=== PATIENT | male | born 1960 | race Caucasian/White ===

== ENCOUNTER 2020-07-27 14:21 | Inpatient (IN) | payer MEDICAID ==
[~2020-07-27] VITALS: Ht 185.4 cm; Wt 110.0 kg
[2020-07-27 15:55] LABS: Basophils # (auto) 0.1 10 ^3/uL (0-0.2); Basophils % (auto) 1.1 % (0.0-2.0); Eosinophils # (auto) 0.2 10 ^3/uL (0-0.8); Eosinophils % (auto) 2.3 % (0.0-7.0); Hematocrit 43.3 % (41.0-53.0); Hemoglobin 14.3 g/dL (13.5-17.5); Lymphocytes % (auto) 24.2 % (10.0-50.0); Mean Corpuscular Hemoglobin 29.7 pg (28.0-32.0); Monocytes # (auto) 0.5 10 ^3/uL (0-1.3); Monocytes % (auto) 5.9 % (0.0-12.0); Neutrophils # (auto) 5.4 10 ^3/uL (1.6-8.6); Neutrophils % (auto) 66.5 % (37.0-80.0); Platelet Count (auto) 271 10^3/uL (140-450); Red Blood Cells 4.81 10^6/uL (4.5-5.90); Red Cell Distribution Width 14.3 % (11.8-14.3); White Blood Cell 8.1 10^3/uL (4.4-10.8)
[2020-07-27 16:04] LABS: Albumin 3.5 g/dL (3.4-5.0); BUN/Creatinine Ratio 10.5; Calcium 8.1 mg/dL (8.5-10.1); Potassium 3.8 mmol/L (3.5-5.1)
[2020-07-27 16:09] LABS: Bilirubin, Total 0.4 mg/dL (0.2-1.0)
[2020-07-27] MEDS ORDERED: ENOXAPARIN SOD 120 MG/0.8 ML SYRINGE SC ONE (18:15)
[2020-07-27] MEDS ORDERED: ASPirin 81 mg TAB PO ONE (18:15)
[2020-07-27] MEDS ORDERED: FENO134C PO (19:38)
[2020-07-27] MEDS ORDERED: ASPI-325 PO (19:38)
[2020-07-27] MEDS ORDERED: ATOR20TA50 PO (19:38)
[2020-07-27] MEDS ORDERED: METO-169 PO (19:38)
[2020-07-27] MEDS ORDERED: MAGN400T40 PO (20:17)
[2020-07-27] MEDS ORDERED: CHOL20007 PO (20:17)
[2020-07-27] MEDS ORDERED: B-CO-15 OR (20:17)
[2020-07-27] MEDS ORDERED: ZINC220C8 PO (20:17)
[2020-07-27] MEDS ORDERED: OMEGCAP28 OR (20:17)
[2020-07-27] MEDS ORDERED: POTA10TA51 PO (20:17)
[2020-07-27 20:27] LABS: Urine Bacteria NONE SEEN /hpf (None Seen); Urine Blood Negative /uL (Negative); Urine Mucus FEW (None Seen); Urine Specific Gravity 1.025 (1.001-1.035); Urine WBC 1 /hpf (0 - 3)
[2020-07-27] MEDS ORDERED: MORPHINE SULF INJ 2 MG/ML SYRINGE 1ML IV PRN ×2 (20:30→20:45)
[2020-07-27] MEDS ORDERED: NITROGLYCERIN 0.4 MG SL TAB SL PRN (20:30)
[2020-07-27 21:15] LABS: Partial Thromboplastin Time 26.2 sec (23.0-31.2)
[2020-07-27 22:29] LABS: Cholesterol 162 mg/dL (< 200)
[2020-07-27 22:32] LABS: HDL Cholesterol 34 mg/dL (40-59); LDL Cholesterol 113 mg/dL (< 100); Triglycerides 124 mg/dL (< 150)
[2020-07-27] MEDS: ATORVASTATIN 20 MG TAB PO SCH (22:56)
--- NOTE | 2020-07-28 00:02 | NUR ---
Telemetry admit from ER Patient admitted to Telemetry unit and oriented to primary RN, unit, room, bed, and unit policies regarding patient care and visiting hours. Patient now on continuous telemetry monitoring, tele box #66 and telemetry reading on arrival to unit is sinus bradycardia at a rate of 58 BPM. Patient weighed by bedscale and encouraged to call if they need something. Bed is in lowest position and locked. Call light within reach. Board updated. All questions and concerns addressed, patient verbalized understanding.
[2020-07-28 00:20] VITALS: BP 134/78
[2020-07-28] MEDS ORDERED: POTA1080 PO (01:29)
[2020-07-28] MEDS ORDERED: [UNRECOGNIZED DRUG - CODE] OR (01:30)
[2020-07-28 05:00] VITALS: BP 133/64
[2020-07-28 07:29] LABS: Basophils # (auto) 0.1 10 ^3/uL (0-0.2); Basophils % (auto) 1.1 % (0.0-2.0); Eosinophils # (auto) 0.2 10 ^3/uL (0-0.8); Hematocrit 40.6 % (41.0-53.0); Hemoglobin 13.8 g/dL (13.5-17.5); Lymphocytes # (auto) 2.6 10 ^3/uL (0.4-5.4); Lymphocytes % (auto) 43.5 % (10.0-50.0); Mean Corpuscular Hemoglobin 30.5 pg (28.0-32.0); Mean Corpuscular Hgb Conc. 33.9 g/dL (32.0-36.0); Monocytes # (auto) 0.4 10 ^3/uL (0-1.3); Monocytes % (auto) 6.8 % (0.0-12.0); Neutrophils # (auto) 2.8 10 ^3/uL (1.6-8.6); Neutrophils % (auto) 45.6 % (37.0-80.0); Nucleated Red Blood Cells % 0.1 %; Platelet Count (auto) 237 10^3/uL (140-450); Red Blood Cells 4.51 10^6/uL (4.5-5.90); Red Cell Distribution Width 14.5 % (11.8-14.3); White Blood Cell 6.1 10^3/uL (4.4-10.8)
[2020-07-28 07:44] LABS: Albumin 3.3 g/dL (3.4-5.0); Anion Gap 3 (5-15); Blood Urea Nitrogen 14 mg/dL (7-18); Calcium 7.8 mg/dL (8.5-10.1); Carbon Dioxide 26 mmol/L (21-32); Chloride 112 mmol/L (98-107); Glucose 93 mg/dL (74-106); Magnesium 2.4 mg/dL (1.6-2.6); Potassium 3.6 mmol/L (3.5-5.1); Sodium 141 mmol/L (136-145)
--- NOTE | 2020-07-28 07:45 | NUR ---
Opening Shift Note Assumed care of patient, awake and alert. No S/S of distress/SOB or pain. Instructed on POC and to call for assist PRN, will continue to monitor for changes Q1hr and PRN. Bed locked in lowest position with two side rails up and call light in reach.
[2020-07-28 07:50] LABS: Alanine Aminotransferase 54 U/L (16-61); Alkaline Phosphatase 48 U/L (45-117); Aspartate Aminotransferase 30 U/L (15-37); BUN/Creatinine Ratio 12.7; Bilirubin, Total 0.4 mg/dL (0.2-1.0); GFR African American 88 mL/min; GFR Non-African American 73 mL/min; Total Protein 6.2 g/dL (6.4-8.2)
[2020-07-28 08:00] VITALS: BP 133/64
--- NOTE | 2020-07-28 08:05 | NUR ---
PATIENT REQUESTING NICOTINE PATCH STATES HE SMOKES A PACK A DAY. DR ROY PAGED FOR ORDERS.
--- NOTE | 2020-07-28 08:13 | NUR ---
RECEIVED CALL BACK, ORDERS RECEIVED FROM DR ROY FOR NICOTINE PATCH 21 MG/ DAILY. WILL IMPLEMENT ORDERS.
[2020-07-28] MEDS: NICOTINE 21MG/24 HR TOPICAL PATCH TD SCH (09:25)
[2020-07-28] MEDS: PANTOPRAZOLE 40 MG TAB PO SCH (09:26)
[2020-07-28] MEDS: METOPROLOL SUCCINATE XL 50 MG TAB PO SCH (09:26)
[2020-07-28] MEDS: ASPirin-EC 81 mg tab PO SCH (09:26)
[2020-07-28] MEDS: FENOFIBRATE MICRONIZED 134 MG PO SCH (09:33)
--- NOTE | 2020-07-28 19:24 | NUR ---
Opening Shift Note Assumed care of patient, awake and alert x 4. No S/S of distress/SOB or pain. Bed is in lowest position and locked. Call light within reach. Board updated. Tele box number matches monitor and leads are in correct placement. Instructed on POC and to call for assist PRN, will continue to monitor for changes Q1hr and PRN.
--- NOTE | 2020-07-28 19:31 | NUR ---
Patient's own medication, Fenofibrate, taken to pharmacy to be delivered tomorrow.
[2020-07-28] MEDS: ATORVASTATIN 20 MG TAB PO SCH (21:34)
[2020-07-28 21:42] VITALS: BP 125/81
[2020-07-29 04:49] VITALS: BP 118/60
--- NOTE | 2020-07-29 08:00 | NUR ---
Morning note Patient resting in bed with even and unlabored respirations, no distress noted. Instructed patient on POC, fall precautions and to call for assistance as needed. Patient verbalized understanding. Fall precautions in place with call light within reach.
--- NOTE | 2020-07-29 08:30 | NUR ---
Patient ambulated around unit Patient denies SOB or CP. Respirations even and unlabored, no distress noted.
[2020-07-29] MEDS: ASPirin-EC 81 mg tab PO SCH (09:01)
[2020-07-29] MEDS: PANTOPRAZOLE 40 MG TAB PO SCH (09:02)
[2020-07-29] MEDS: METOPROLOL SUCCINATE XL 50 MG TAB PO SCH (09:02)
[2020-07-29] MEDS: NICOTINE 21MG/24 HR TOPICAL PATCH TD SCH (09:02)
--- NOTE | 2020-07-29 09:20 | NUR ---
was at bedside - Dr. Woodson This RN was at bedside. POC discussed with this RN and the patient.
[2020-07-29 09:33] VITALS: BP 132/71
--- NOTE | 2020-07-29 11:11 | NUR ---
MD was at bedside - Dr. Soto This RN was at bedside. Patient requesting to shower. MD verbalized understanding. Order received and read back to verify.
[2020-07-29 12:48] VITALS: BP 147/78
--- NOTE | 2020-07-29 16:00 | NUR ---
Patient ambulated around unit Patient denies SOB or CP. Respirations even and unlabored, no distress noted.
[2020-07-29 16:32] VITALS: BP 149/80
--- NOTE | 2020-07-29 17:32 | NUR ---
Patient taking a shower Shower supplies provided. Safety and fall precautions provided to the patient. Patient verbalized understanding.
--- NOTE | 2020-07-29 17:55 | NUR ---
Patient completed shower - telemonitor reapplied Patient returned to bed with no complications.
[2020-07-29] MEDS: FENOFIBRATE MICRONIZED 134 MG PO SCH (17:56)
--- NOTE | 2020-07-29 18:24 | NUR ---
Closing note Patient resting in bed with even and unlabored respirations, no distress noted. Fall precautions in place with call light within reach.
--- NOTE | 2020-07-29 19:02 | NUR ---
Care endorsed to AARON Kellogg.
--- NOTE | 2020-07-29 20:00 | NUR ---
open note assumed care of pt. upon entering room pt just returned from ambulating independently through unit without issue. pt on room air no distress noted or expressed. pt denies any pain. pt oriented to this nurse and updated on plan of care. pt bed locked, low and 2x rails up. call light in reach, this nurse to round q1hr and prn. pt encouraged to call as needed.
[2020-07-29 22:00] VITALS: BP 110/64
[2020-07-29] MEDS: ATORVASTATIN 20 MG TAB PO SCH (22:30)
[2020-07-30 05:00] VITALS: BP 120/72
[2020-07-30 06:41] LABS: Potassium 4.3 mmol/L (3.5-5.1)
[2020-07-30 06:48] LABS: BUN/Creatinine Ratio 14.8; Calcium 8.4 mg/dL (8.5-10.1)
[2020-07-30] MEDS: ASPirin-EC 81 mg tab PO SCH (08:28)
[2020-07-30] MEDS: METOPROLOL SUCCINATE XL 50 MG TAB PO SCH (08:29)
[2020-07-30] MEDS: NICOTINE 21MG/24 HR TOPICAL PATCH TD SCH (08:30)
[2020-07-30] MEDS: PANTOPRAZOLE 40 MG TAB PO SCH (08:30)
[2020-07-30 09:18] VITALS: BP 137/76
[2020-07-30] MEDS: FENOFIBRATE MICRONIZED 134 MG PO SCH (10:00)
--- NOTE | 2020-07-30 10:05 | NUR ---
Patient ambulated around unit Patient denies SOB or CP. Respirations even and unlabored, no distress noted.
[2020-07-30 12:31] VITALS: BP 123/74
--- NOTE | 2020-07-30 13:18 | NUR ---
called for an update Update provided to Dr. Soto.
--- NOTE | 2020-07-30 13:49 | NUR ---
Patient sitting in bed with even and unlabored respirations, no distress noted. Call light within reach.
--- NOTE | 2020-07-30 15:08 | NUR ---
Patient ambulated around unit Patient denies SOB or CP. Respirations even and unlabored, no distress noted.
--- NOTE | 2020-07-30 15:47 | NUR ---
Informed consent for smoking signed by patient & placed in hard chart Education on smoking cessation and safety precautions provided to the patient. Patient verbalized understanding. Patient is A&Ox4. Patient stated "My and kids may come on by later on and I would really like to see them. I don't necessarily want to smoke. I just want to go outside for a bit." Visitor policy & COVID-19 precautions verbally provided to the patient. Patient verbalized understanding.
--- NOTE | 2020-07-30 16:52 | NUR ---
Patient resting in bed with even and unlabored respirations, no distress noted. Call light within reach. Patient denies SOB or CP.
[2020-07-30 16:53] VITALS: BP 129/72
--- NOTE | 2020-07-30 18:46 | NUR ---
Closing note Patient resting in bed with even and unlabored respirations, no distress noted. Fall precautions in place with call light within reach.
--- NOTE | 2020-07-30 19:10 | NUR ---
Care endorsed to AARON Kellogg.
--- NOTE | 2020-07-30 20:01 | NUR ---
OPEN NOTE assumed care of pt. pt seen ambulating hallways on room air with no s/s distress noted or expressed. pt denies any pain. this nurse will update pt upon return to room.
[2020-07-30 21:52] VITALS: BP 117/75
[2020-07-30] MEDS: ATORVASTATIN 20 MG TAB PO SCH (23:32)
[2020-07-31 05:00] VITALS: BP 118/69
[2020-07-31 07:08] LABS: BUN/Creatinine Ratio 14.2; Calcium 8.7 mg/dL (8.5-10.1); Potassium 4.1 mmol/L (3.5-5.1)
--- NOTE | 2020-07-31 07:30 | NUR ---
Opening Shift Note Assumed care of patient, who is alert and oriented x4. Respirations are even and unlabored. No S/S of distress/SOB. No reports of chest pain at this time. Bed is low, locked with 2x side rails up. Call light is within reach. Instructed on POC and to call for assist PRN, will continue to monitor for changes Q1hr and PRN.
[2020-07-31 09:00] VITALS: BP 141/76
--- NOTE | 2020-07-31 11:00 | NUR ---
Spoke to MD Spoke to Dr. Soto and updated MD on patient's current status. No new orders received.
[2020-07-31 11:09] VITALS: BP 145/94
[2020-07-31] MEDS: PANTOPRAZOLE 40 MG TAB PO SCH (12:47)
[2020-07-31] MEDS: NICOTINE 21MG/24 HR TOPICAL PATCH TD SCH (12:47)
[2020-07-31] MEDS: ASPirin-EC 81 mg tab PO SCH (12:48)
[2020-07-31] MEDS: METOPROLOL SUCCINATE XL 50 MG TAB PO SCH (12:48)
[2020-07-31] MEDS: FENOFIBRATE MICRONIZED 134 MG PO SCH ×2 (12:48→12:53)
[2020-07-31 13:00] VITALS: BP 123/88
--- NOTE | 2020-07-31 14:24 | NUR ---
Nutrition Assessment Est energy needs 6929-3936 kcal (14-18 kcal/kg BW 109.4kg) Est protein needs 84-106g (1-1.2g/kg IBW 83.6kg) Will reassess prn. Addendum: 07/31/20 at [address] Amended: Links added.
[2020-07-31 17:00] VITALS: BP 127/74
--- NOTE | 2020-07-31 19:30 | NUR ---
Opening Shift Note Received report from Jocy WALKER. Assumed care of patient, awake and alert. No S/S of distress/SOB or pain. Instructed on POC and to call for assist PRN, will continue to monitor for changes Q1hr and PRN.
[2020-07-31] MEDS: ATORVASTATIN 20 MG TAB PO SCH (21:54)
[2020-07-31 22:00] VITALS: BP 129/75
--- NOTE | 2020-07-31 23:55 | NUR ---
Patient advised NPO for procedure tomorrow, verbalized understanding.
[2020-08-01 05:00] VITALS: BP 136/74
--- NOTE | 2020-08-01 07:20 | NUR ---
Opening Shift Note Assumed care of patient, who is alert and oriented x4. Respirations are even and unlabored. No S/S of distress/SOB. No reports of chest pain at this time. Patient aware of [facility] procedure today with Dr. Woodson. Bed is low, locked with 2x side rails up. Call light is within reach. Instructed on POC and to call for assist PRN, will continue to monitor for changes Q1hr and PRN.
--- NOTE | 2020-08-01 07:40 | NUR ---
Dr. Woodson at bedside Discussing procedure with patient. Patient is in agreement. Will continue to monitor.
[2020-08-01] MEDS ORDERED: LIDOCAINE 2%HCL (LOCAL ANESTH.) INJ 20ML MDV ONE (08:05)
[2020-08-01] MEDS ORDERED: HEPARIN IN NS 1000Units/500mL 0 ML ONE (08:05)
[2020-08-01] MEDS ORDERED: IODIXANOL 320MG/ML 100ML BTL IV ONE ×2 (08:05→08:58)
--- NOTE | 2020-08-01 08:10 | NUR ---
Patient off unit Patient taken to lab coordinator for LHC with Dr. Woodson. Consents signed and filed in chart. VSS. No distress noted upon departure.
[2020-08-01] MEDS ORDERED: LORazepam 2MG/ML-1ML VIAL IV ONE (08:15)
[2020-08-01] MEDS ORDERED: fentaNYL CITRATE 100 MCG/2 ML VL ONE ×2 (08:58→09:22)
[2020-08-01] MEDS ORDERED: SODIUM CHL 0.9% 0 ML ONE (08:58)
[2020-08-01] MEDS ORDERED: ANGIOMAX 250 MG VIAL IV ONE (08:58)
[2020-08-01] MEDS ORDERED: MIDAZOLAM HCL 1MG/1ML-2 ML VIAL ONE ×2 (08:58→09:22)
[2020-08-01] MEDS ORDERED: VERAPAMIL 2.5MG/ML INJ 2ML VIAL IV ONE (09:05)
[2020-08-01] MEDS ORDERED: diphenhdrAMINE HCL 50 MG/1 ML VL ONE (09:12)
[2020-08-01] MEDS ORDERED: HEPARIN SODIUM (PORCINE) 5000 UNITS/ML 1ML VIAL ONE (09:50)
--- NOTE | 2020-08-01 10:38 | NUR ---
Back on unit S/p LHC with Dr. Woodson. Access site: Left radial. Vasc band in place. No bleeding, hematoma, numbness noted or expressed. Orders to begin deflating air from vasc band at 1100. Bed is low, locked with 2x side rails up. Call light is within reach. Bed alarm is on for safety.
--- NOTE | 2020-08-01 12:00 | NUR ---
Left radial Dressing is C/D/I. No bleeding, hematoma, swelling or numbness noted or expressed. Will continue to monitor Q1hr and PRN.
[2020-08-01] MEDS: METOPROLOL SUCCINATE XL 50 MG TAB PO SCH (14:18)
[2020-08-01] MEDS: PANTOPRAZOLE 40 MG TAB PO SCH (14:18)
[2020-08-01] MEDS: ASPirin-EC 81 mg tab PO SCH (14:18)
[2020-08-01] MEDS: NICOTINE 21MG/24 HR TOPICAL PATCH TD SCH (14:18)
[2020-08-01] MEDS: FENOFIBRATE MICRONIZED 134 MG PO SCH (14:19)
--- NOTE | 2020-08-01 16:59 | NUR ---
Dr. Batista at bedside Updating patient on POC. Patient cleared by cardiology for discharge. MD to input orders. Will carry out.
[2020-08-01] MEDS ORDERED: PANT40TA2 PO (17:01)
[2020-08-01] MEDS ORDERED: DOXY-346 PO (17:01)
[2020-08-01] MEDS ORDERED: NIC21P TD (17:02)
[2020-08-01 17:30] VITALS: BP 115/69
--- NOTE | 2020-08-01 18:31 | NUR ---
Discharge instructions given as ordered. Encourage to follow up with PMD as instructed. Provided patient with information to PCP office and emphasized for patient to follow up in 2-3 weeks as ordered by Dr. Batista. All questions and concerns addressed. Patient verbalized understanding. Home medications held in Pharmacy returned to patient. Patient signed "Patient's own medication envelope" claiming repossession of home medications.IV removed with catheter intact, pressure dressing applied. Telemetry unit returned to ICU. Patient ambulated off unit with all personal belongings. No distress noted at time of departure.
== END 2020-08-01 18:30 | disposition home or self-care (01) | DRG 192 ==
LOC: ER 14:21 → TELE 14:22 → TELE-WESTW 23:23
PROVIDERS: ADMIT Internal Medicine; ATTEND Internal Medicine
PROC: 4A023N7 Measurement of Cardiac Sampling and Pressure, Left Heart, Percutaneous Approach (ICD-10-PCS; principal; 2020-08-01)
PROC: B2111ZZ Fluoroscopy of Multiple Coronary Arteries using Low Osmolar Contrast (ICD-10-PCS; 2020-08-01)
PROC: B2151ZZ Fluoroscopy of Left Heart using Low Osmolar Contrast (ICD-10-PCS; 2020-08-01)
DX: R07.9 Chest pain, unspecified (principal); I25.119 Atherosclerotic heart disease of native coronary artery with unspecified angina pectoris; K21.9 Gastro-esophageal reflux disease without esophagitis; Q24.5 Malformation of coronary vessels; E78.5 Hyperlipidemia, unspecified; E66.9 Obesity, unspecified; I10 Essential (primary) hypertension; F17.210 Nicotine dependence, cigarettes, uncomplicated; E78.1 Pure hyperglyceridemia; K29.70 Gastritis, unspecified, without bleeding; Z68.32 Body mass index [BMI] 32.0-32.9, adult
CPT/HCPCS: 36415; 71046; 78452; 80048; 80053; 80061; 81001; 83036; 83735; 83880; 84100; 84484; 85025; 85610; 85730; 93005; 93017; 93306; 93458; 99152; 99153; 99291; G0378; J2250; Q9967

== ENCOUNTER 2023-02-14 18:10 | Emergency (ER) | payer MEDICAID ==
[~2023-02-14] VITALS: Ht 185.4 cm; Wt 115.2 kg
[~2023-02-14 18:10] MED LIST: ASPI-325 PO; ATOR20TA50 PO; CHOL20007 PO; DOXY-346 PO; FENO134C PO; MAGN400T40 PO; METO-289 PO; NIC21P TD; OMEGCAP28 OR; PANT40TA2 PO; POTA1080 PO
[2023-02-14 18:42] VITALS: BP 143/81
[2023-02-14] MEDS ORDERED: IBUP800T26 PO (20:24)
== END 2023-02-14 23:15 | disposition home or self-care (01) ==
LOC: ER 18:10
DX: M72.2 Plantar fascial fibromatosis (principal); I10 Essential (primary) hypertension; F17.210 Nicotine dependence, cigarettes, uncomplicated; Z79.82 Long term (current) use of aspirin; Z79.2 Long term (current) use of antibiotics; Z79.899 Other long term (current) drug therapy
CPT/HCPCS: 73630